=== PATIENT | female | born 1975 | race Caucasian/White ===

== ENCOUNTER 2017-11-02 14:55 | Emergency (ER) | payer OTHER ==
[~2017-11-02] VITALS: Ht 165.1 cm; Wt 56.7 kg
[2017-11-02 15:01] VITALS: BP 104/64
--- NOTE | 2017-11-02 15:49 | RADIOLOGY REPORT ---
EXAMINATION: CR RIGHT FOOT. CR RIGHT ANKLE. CLINICAL INFORMATION: Severe pain and swelling to top of foot. These include healed/Achilles. Rule out fracture versus sprain. Patient fell on stairs one hour ago. COMPARISON: None TECHNIQUE: 3 views of the right foot and 3 views of the right ankle. FINDINGS: Right ankle: Mild lateral malleolar soft tissue swelling. No acute fracture or dislocation. Ankle mortise symmetric and intact. No ankle joint effusion. The Achilles tendon shadow appears unremarkable. Right foot: There is an oblique fracture of the distal fifth metatarsal shaft with one cortex width of medial displacement and overlying soft tissue swelling. Approximately 3 mm of fracture distraction is seen. Bony structures are otherwise intact and unremarkable. IMPRESSION: 1. Acute mildly displaced fracture of the distal fifth metatarsal shaft. 2. Mild lateral malleolar soft tissue swelling. No underlying fracture or dislocation.
[2017-11-02] MEDS ORDERED: VENLAFAXINE HC150 MG PO (16:17)
--- NOTE | 2017-11-02 16:20 | ED ANKLE/FOOT INJURY COMPLAINT ---
History of Present Illness General Chief Complaint: Foot or Ankle Injury Stated Complaint: R ANKLE Source: patient, family, old records Exam Limitations: no limitations Vital Signs & Intake/Output Vital Signs & Intake/Output Vital Signs Date Time Temp Pulse Resp B/P B/P Pulse O2 O2 Flow FiO2 Mean Ox Delivery Rate 11/02 1501 98.0 76 18 104/64 98 Room Air Allergies Coded Allergies: No Known Allergies (11/02/17) Reconcile Medications Ibuprofen 600 MG TABLET 1 TAB PO Q6P PRN pain with food Oxycodone HCl/Acetaminophen (Percocet 5-325 MG Tablet) 5 MG-325 MG TABLET 1-2 TAB PO Q6P PRN severe pain Venlafaxine HCl (Venlafaxine HCl ER) 150 MG CAP.ER.24H 1 CAP PO DAILY DEPRESSION (Reported) Triage Note: 42F SLID ONE STEP AND R FOOT COMPLETELY INVERTED. ARRIVES WITH PAIN TO TOP OF FOOT, LATERAL MALEOLUS AND PAIN TO ACHILLES TENDON AREA WITH MODERATE SWELLING AND PAIN ON PALPATION. SQUEEZE TEST SHOWS LIMITED CONTRACT OR MOVEMENT COMPARED WITH OTHER SIDE WHILE SITTING WITH LEGS DEPENDENT. PAIN 4/10 WITH MOTRIN PER [facility]MAR Triage Nurses Notes Reviewed? yes Occurred: just prior to arrival Duration: minute(s):, constant, continues in ED Timing: recent history Severity: severe Pain/Injury Location: Right: Foot, Ankle, 5th toe. Method of Injury: fall, twisted Modifying Factors: Improves With: immobilization, pain medication, rest. Worsens With: jarring, movement. Associated Symptoms: swelling, GCS 15 since, stiffness LMP (ages 10-50): unknown : No Patient currently breastfeeds: No HPI: Prior to admission patient was barefoot slipped on the stairs and inverted her right foot. She complains of pain swelling to right lateral foot and ankle. There is no other injury fever chills nausea vomiting diarrhea abdominal pain chest pain shortness breath headache dysuria rash bleeding. Past History Travel History Traveled to [place] past 21 day No Medical History Any Pertinent Medical History? see below for history Neurological: NONE EENT: NONE Cardiovascular: NONE Respiratory: NONE Gastrointestinal: NONE Hepatic: NONE Renal: NONE Musculoskeletal: NONE Psychiatric: depression Endocrine: NONE Surgical History Surgical History: non-contributory Psychosocial History What is your primary language Macedonian Tobacco Use: Never used Family History Hx Contributory? No Review of Systems Review of Systems Constitutional: Reports: no symptoms. EENTM: Reports: no symptoms. Respiratory: Reports: no symptoms. Cardiovascular: Reports: no symptoms. GI: Reports: no symptoms. Genitourinary: Reports: no symptoms. Musculoskeletal: Reports: see HPI, joint pain, joint swelling. Skin: Reports: no symptoms. Neurological/Psychological: Reports: no symptoms. Hematologic/Endocrine: Reports: no symptoms. Immunologic/Allergic: Reports: no symptoms. All Other Systems: Reviewed and Negative Physical Exam Physical Exam General Appearance: well developed/nourished, alert, awake, anxious, mild distress, thin Head: atraumatic, normal appearance Eyes: Bilateral: normal appearance, PERRL, EOMI. Ears, Nose, Throat: normal pharynx, normal ENT inspection, hearing grossly normal Neck: normal inspection, supple, full range of motion, no midline tenderness Cardiovascular/Respiratory: normal breath sounds, normal peripheral pulses, regular rate/rhythm, no respiratory distress Back: normal inspection, normal range of motion, no vertebral tenderness Leg/Knee/Thigh Left: normal range of motion, normal inspection Leg/Knee/Thigh Right: normal range of motion, normal inspection Ankle Left: normal inspection, normal range of motion Ankle Right: soft tissue tenderness, swelling, tenderness, limited range of motion Foot Left: normal inspection, normal range of motion Foot Right: evidence of injury, tenderness, bone tenderness, deformity, limited range of motion, pain, soft tissue tenderness, swelling Reflexes: 2+: knee (R), knee (L). Neuro/Vascular: normal motor function, normal sensation Tendon: normal tendon function Psychiatric: awake, alert, oriented x 3 Skin: intact, normal color, warm/dry Progress Differential Diagnosis: fracture, dislocation, sprain, contusion Plan of Care: Orders Procedure Date/time Status Durable Medical Equipment 11/02 1613 Active Diagnostic Imaging: Viewed by Me: Radiology Read. Discussed w/RAD: Radiology Read. Radiology Impression: 1. Acute mildly displaced fracture of the distal fifth metatarsal shaft. 2. Mild lateral malleolar soft tissue swelling. No underlying fracture or dislocation. Departure Departure Time of Disposition: 1618 Disposition: HOME OR SELF CARE Condition: Stable Clinical Impression Primary Impression: Fracture of 5th metatarsal Referrals: Kelle RAYMUNDO,Dave Boucher Call for orthopedic follow up. Naomy RAYMUNDO,Lorena (PCP/Family) Tonio Mae DPM Call for podiatry follow up Departure Forms: Customer Survey General Discharge Information Prescriptions: Current Visit Scripts Ibuprofen 1 TAB PO Q6P PRN pain #50 TAB with food Oxycodone HCl/Acetaminophen (Percocet 5-325 MG Tablet) 1-2 TAB PO Q6P PRN severe pain #15 TAB Procedures Splinting Location: Right foot and ankle Manual Alignment Performed: No Pre-Made Type: velcro Splint: ortho boot Splint Applied By: splint applied by other Pre-Proc Neuro Vasc Exam: normal Post-Proc Neuro Vasc Exam: normal
[2017-11-02] MEDS ORDERED: IBUPROFEN600 M1 PO (16:23)
[2017-11-02] MEDS ORDERED: PERCOCET 5-3251 EACH PO (16:23)
--- NOTE | 2017-11-04 17:27 | History & Physical Pre-Op ---
General Information and HPI History of Present Illness: Sierra is a 42-year-old female who experienced a tripping episode last Saturday and sustained a displaced fifth metatarsal fracture right foot. The patient presented to the ED complaining of pain, swelling and inability to bear weight right lower extremity. Allergies/Medications Allergies: Coded Allergies: No Known Allergies (11/02/17) Home Med list Ibuprofen 600 MG TABLET 1 TAB PO Q6P PRN pain with food Oxycodone HCl/Acetaminophen (Percocet 5-325 MG Tablet) 5 MG-325 MG TABLET 1-2 TAB PO Q6P PRN severe pain Venlafaxine HCl (Venlafaxine HCl ER) 150 MG CAP.ER.24H 1 CAP PO DAILY DEPRESSION (Reported) Past History Medical History Neurological: NONE EENT: NONE Cardiovascular: NONE Respiratory: NONE Gastrointestinal: NONE Hepatic: NONE Renal: NONE Musculoskeletal: NONE Psychiatric: depression Endocrine: NONE Surgical History Pertinent Surgical History: non-contributory Review of Systems Review of Systems: Unremarkable except for that noted in history present illness Exam & Diagnostic Data Physical Exam: Lungs clear bilaterally. Heart sounds rate and rhythm regular. Lower extremity physical exam demonstrates intact pedal pulses bilaterally. Both dorsalis pedis and posterior tibial arteries are palpable bilaterally. Patient without any sensory motor deficits. Deep tendon reflexes grossly intact. Patient noted to have some edema and ecchymosis over the dorsolateral aspect of the right foot. Assessment/Plan Assessment/Plan: Displaced fifth metatarsal fracture right foot. A lengthy discussion reviewing both surgical and conservative options was held the patient at bedside and the patient elects to go forward with surgery despite the risks. As Ranked By This Provider Problem List: 1. Fracture of 5th metatarsal Attending MD Review Statement Attending Statement Attending MD Statement: examined this patient
== END 2017-11-02 17:15 ==
LOC: ERH 14:55
DX: S92.351A Displaced fracture of fifth metatarsal bone, right foot, initial encounter for closed fracture (principal); X58.XXXA Exposure to other specified factors, initial encounter; Y92.9 Unspecified place or not applicable; Y93.9 Activity, unspecified
CPT/HCPCS: 73610-RT; 73630-RT

== ENCOUNTER → 2017-11-05 | Day surgery (SDC) | payer OTHER ==
[~2017-11-05] MED LIST: IBUPROFEN600 M1 PO; PERCOCET 5-3251 EACH PO; VENLAFAXINE HC150 MG PO
--- NOTE | 2017-11-05 10:49 | Operative Report ---
Operative/Inv Procedure Report Surgery Date: 11/05/17 Name of Procedure: 1 ORIF 5th metatarsal fracture right Pre-Operative Diagnosis: 1 Displaced 5th metatarsal fracture right Post-Operative Diagnosis: The same Estimated Blood Loss: scant Surgeon/Pain Medicine Physician: Carmelita RHODES,Tonio Tannre DPM Anesthesia: moderate sedation, block Operative/Procedure Note Note: After obtaining informed consent the patient was brought to the operating room and placed on the operating table in the supine position. The patient was then securely fastened to the operating table utilizing safety belt. After administration of IV sedation, 10 mL of 0.5% Marcaine plain was infiltrated about the patient's right ankle. A well-padded ankle tourniquet was placed about the patient's right lower extremity. 2 g of Ancef were delivered intravenously times one dose. Right foot and ankle within scrubbed, prepped and draped in usual aseptic manner. Right lower extremity is elevated to examine to limb, which point the ankle tourniquet inflated 250 mmHg. Attention directed dorsal lateral aspect of the right foot, where a linear incision was made overlying the distal extent of the fifth metatarsal. The incision was deepened subtenons tissues. All vital neurovascular structures were identified protected. Dissection extended down to the periosteum overlying the fifth metatarsal, which is incised reflected. A displaced oblique and spiral fifth metatarsal fracture was identified. The distal osseous segment was gapped and shortened. The periosteum was reflected and the fracture was irrigated of any hematoma. The distal osseous segment was then mobilized and distracted and reduced and held in place with a bone clamp. It was then fixated utilizing standard AO fixation techniques to fully threaded cortical screws were fixated across the fracture site. The bone reduction clamp was then reduced and the wound was irrigated cuff Svensson normal sterile saline. The deep soft tissue structures were closed with 3-0 Vicryl subtenons tissues reports a 4-0 Vicryl. The skin edges were then reapproximated 4-0 nylon. Incision just with Xeroform, 4 x 4's and Kerlix. A Jane course of dressing and posterior splint was placed about the patient's right lower extremity. The patient was noted tolerate both procedure and anesthesia well and the patient was transported from the operating room to recovery with vital signs stable.
== END ==
LOC: STS 07:00
DX: S92.351A Displaced fracture of fifth metatarsal bone, right foot, initial encounter for closed fracture (principal); W01.0XXA Fall on same level from slipping, tripping and stumbling without subsequent striking against object, initial encounter
CPT/HCPCS: 81025; J0131; J0690; J1100; J1885; J2001; J2250; J2405